=== PATIENT | male | born 1980 | race Caucasian/White ===

== ENCOUNTER 2016-08-23 01:49 | Emergency (ER) | payer MEDICAID ==
[2016-08-23 01:49] VITALS: BMI 27.3
[2016-08-23 02:03] VITALS: BP 134/81; PULSE 73; RESP 16; TEMP 97.5; O2SAT 100
--- NOTE | 2016-08-23 02:41 | ED PDOC ---
HPI: Abdomen Time Seen by Provider: 08/23/16 02:05 Chief Complaint (Nursing): Abdominal Pain Chief Complaint (Provider): abdominal pain History Per: Patient History/Exam Limitations: no limitations Onset/Duration Of Symptoms: Days (1 month) Current Symptoms Are (Timing): Still Present Severity: Mild Location Of Pain/Discomfort: RUQ, LUQ Quality Of Discomfort: Dull Exacerbating Factors: None, Other (sitting) Alleviating Factors: Other (laying down) Last Bowel Movement: Today Additional Complaint(s): Patient is a 36 year old male with hx of pancreatitis c/o upper abdominal pain for past 1 month/ Pain became worse this evening. He denies N/V/D, fever. CP, SOB. Patient states pain is different from what he experienced with pancreatitis. Pt has had EGD and colonoscopy in past with Dr Braswell. PMD [facility] ([facility]) Past Medical History Reviewed: Historical Data, Nursing Documentation, Vital Signs Vital Signs: Last Vital Signs Temp 97.5 F L 08/23/16 02:01 Pulse 73 08/23/16 02:01 Resp 16 08/23/16 02:01 BP 134/81 08/23/16 02:01 Pulse Ox 100 08/23/16 02:49 - Medical History PMH: No Chronic Diseases - Surgical History Surgical History: Endoscopy - Family History Family History: States: No Known Family Hx - Living Arrangements Living Arrangements: Alone - Social History Current smoker - smoking cessation education provided: No Ex-Smoker (has not smoked in the last 12 months): No Alcohol: None Drugs: Denies - Immunization History Hx Tetanus Toxoid Vaccination: No Hx Influenza Vaccination: No Hx Pneumococcal Vaccination: No - Home Medications Home Medications: Ambulatory Orders Medication Instructions Recorded Cyclobenzaprine [Cyclobenzaprine 10 mg PO Q8 PRN #9 tab 04/23/15 HCl] traMADol [Ultram] 50 mg PO TID PRN #12 tab 04/23/15 Dicyclomine [Bentyl] 20 mg PO Q12 PRN #20 tab 08/23/16 - Allergies Allergies/Adverse Reactions: Allergies Allergy/AdvReac Type Severity Reaction Status Date / Time No Known Allergies Allergy Verified 04/23/15 08:55 Review of Systems ROS Statement: Except As Marked, All Systems Reviewed And Found Negative Gastrointestinal: Positive for: Abdominal Pain Physical Exam - Reviewed Nursing Documentation Reviewed: Yes Vital Signs Reviewed: Yes - Physical Exam Head Exam: Positive for: ATRAUMATIC, NORMOCEPHALIC Skin: Positive for: Normal Color, Warm, Dry Eye Exam: Positive for: Normal appearance, EOMI, PERRL ENT: Positive for: Normal ENT Inspection Neck: Positive for: Normal, Painless ROM, Supple Cardiovascular/Chest: Positive for: Regular Rate, Rhythm Respiratory: Positive for: Normal Breath Sounds. Negative for: Crackles, Rales , Wheezing Gastrointestinal/Abdominal: Positive for: Bowel Sounds, Soft, Tenderness (mild RUQ tenderness is elicited) Extremity: Positive for: Normal ROM. Negative for: Tenderness, Pedal Edema Neurologic/Psych: Positive for: Alert, Oriented. Negative for: Motor/Sensory Deficits - Laboratory Results Result Diagrams: 08/23/16 02:30 08/23/16 02:30 - ECG O2 Sat by Pulse Oximetry: 100 Medical Decision Making Medical Decision Makin yo male with abdominal pain in setting of hx of pancreatitis Labs ordered; pt declines analgesia due jackie minor nature of symptoms Labs reviewed show no clinically significant abnormalities Pt stable upon dc home Dx Abdominal Pain FU PCP and GI MD in 2 days RX Bentyl Disposition - Clinical Impression Clinical Impression: Abdominal pain - Patient ED Disposition Is Patient to be Admitted: No Counseled Patient/Family Regarding: Studies Performed, Diagnosis, Need For Followup, Rx Given - Disposition Referrals: Chicho Guillermo MD [Staff Provider] - Marky Braswell MD, PhD [Staff Provider] - Disposition: Routine/Home Disposition Time: 04:00 Condition: STABLE Prescriptions: Dicyclomine [Bentyl] 20 mg PO Q12 PRN #20 tab PRN Reason: abdominal pain Instructions: Abdominal Pain (ED)
[2016-08-23 02:51] LABS: BASO # 0.1 K/uL (0.0-0.2); BASO % 0.8 % (0.0-2.0); EOS # 0.4 K/uL (0.0-0.7); LYMPH # 3.2 K/uL (1.0-4.3); LYMPH % 35.6 % (20.0-40.0); MEAN CELL VOLUME 95.3 fl (80.0-94.0); MEAN CORPUSCULAR HEMOGLOBIN 31.2 pg (27.0-31.0); MEAN CORPUSCULAR HGB CONC 32.7 g/dL (33.0-37.0); MEAN PLATELET VOLUME 8.8 fl (7.2-11.7); MONO # 0.8 K/uL (0.0-0.8); MONO % 8.6 % (0.0-10.0); NEUT # 4.6 K/uL (1.8-7.0); NRBC % 0.2 % (0.0-0.0); RED CELL DISTRIBUTION WIDTH 13.4 % (11.5-14.5); WHITE BLOOD COUNT 9.1 K/uL (4.8-10.8)
[2016-08-23 03:00] LABS: ALB/GLOB RATIO 1.2 (1.0-2.1); ALCOHOL SERUM < 10 mg/dl (0-10); ALKALINE PHOSPHATASE 83 U/L (38-126); ALT/SGPT 199 U/L (21-72); AST/SGOT 81 U/L (17-59); BILIRUBIN,TOTAL 0.3 mg/dl (0.2-1.3); BLOOD UREA NITROGEN 20 mg/dl (9-20); CALCIUM 9.2 mg/dL (8.4-10.2); CARBON DIOXIDE 25 mmol/L (22-30); CHLORIDE 103 mmol/L (98-107); GFR AFRICAN-AMERICAN > 60; GLUCOSE,RANDOM 121 mg/dL (75-110); LIPASE 109 U/L (23-300); POTASSIUM 3.8 MMOL/L (3.6-5.0); SODIUM 138 mmol/l (132-148); TOTAL PROTEIN 7.6 G/DL (6.3-8.2)
[2016-08-23 04:05] LABS: RBC URINE 2 /hpf (0-3); URINE BACTERIA RARE (<OCC); URINE BILIRUBIN NEGATIVE (NEGATIVE); URINE BLOOD NEGATIVE (NEGATIVE); URINE CALCIUM OXALATE CRYSTALS FEW /hpf (<OCC); URINE COLOR YELLOW (YELLOW); URINE GLUCOSE (UA) NEG (Normal); URINE KETONE TRACE mg/dL (NEGATIVE); URINE LEUKOCYTE ESTERASE NEG Leu/uL (Negative); URINE PROTEIN NEGATIVE (NEGATIVE); URINE UROBILINOGEN 0.2-1.0 mg/dL (0.2-1.0); WBC URINE < 1 /hpf (0-5)
== END 2016-08-23 04:45 | disposition home or self-care (01) ==
LOC: H.ER 01:49
DX: R10.9 Unspecified abdominal pain (principal)

== ENCOUNTER 2017-07-15 13:42 | Emergency (ER) | payer MEDICAID ==
[2017-07-15 13:43] VITALS: BMI 27.3
[2017-07-15 14:19] VITALS: BP 130/85; PULSE 60; RESP 18; TEMP 98.1; O2SAT 99
--- NOTE | 2017-07-15 16:17 | ED PDOC ---
HPI: CCC, URI, Sore Throat Time Seen by Provider: 07/15/17 13:59 Chief Complaint (Nursing): Chest Pain Chief Complaint (Provider): Cough x 1 month History Per: Patient History/Exam Limitations: no limitations Have you had recent travel within the past 21 days to any of the following countries: [place], [place], [place] or [place]?: No Onset/Duration Of Symptoms: Days Current Symptoms Are (Timing): Still Present Additional History Per: Patient Additional Complaint(s): 37yo male, presents to ER with complaints of chest pain for the past month. He also reports a productive cough with bloody phlegm. patient denies any shortness of breath or vomiting. No other complaints. Past Medical History Reviewed: Historical Data, Nursing Documentation, Vital Signs Vital Signs: Last Vital Signs Temp 98.1 F 07/15/17 14:15 Pulse 60 07/15/17 14:15 Resp 18 07/15/17 14:15 BP 130/85 07/15/17 14:15 Pulse Ox 99 07/28/17 20:35 - Medical History PMH: Gall Bladder Disease (GALLSTONES), Pancreatitis - Surgical History Surgical History: Endoscopy - Family History Family History: States: No Known Family Hx - Immunization History Hx Tetanus Toxoid Vaccination: No Hx Influenza Vaccination: No Hx Pneumococcal Vaccination: No - Home Medications Home Medications: Ambulatory Orders Medication Instructions Recorded Cyclobenzaprine [Cyclobenzaprine 10 mg PO Q8 PRN #9 tab 04/23/15 HCl] traMADol [Ultram] 50 mg PO TID PRN #12 tab 04/23/15 Dicyclomine [Bentyl] 20 mg PO Q12 PRN #20 tab 08/23/16 - Allergies Allergies/Adverse Reactions: Allergies Allergy/AdvReac Type Severity Reaction Status Date / Time No Known Allergies Allergy Verified 07/15/17 14:14 Review of Systems ROS Statement: Except As Marked, All Systems Reviewed And Found Negative Constitutional: Negative for: Fever, Weakness Cardiovascular: Positive for: Chest Pain. Negative for: Light Headedness Respiratory: Positive for: Cough. Negative for: Shortness of Breath Physical Exam - Reviewed Nursing Documentation Reviewed: Yes Vital Signs Reviewed: Yes - Physical Exam Appears: Positive for: Non-toxic, No Acute Distress Head Exam: Positive for: NORMAL INSPECTION Skin: Positive for: Normal Color Eye Exam: Positive for: Normal appearance Neck: Positive for: Supple Cardiovascular/Chest: Positive for: Regular Rate, Rhythm. Negative for: Murmur Respiratory: Positive for: Normal Breath Sounds. Negative for: Respiratory Distress Neurologic/Psych: Positive for: Alert, Oriented. Negative for: Motor/Sensory Deficits - ECG O2 Sat by Pulse Oximetry: 99 (RA) Pulse Ox Interpretation: Normal Medical Decision Making Medical Decision Making: Plan: -- CBC -- CMP -- CXR progress: -- Nurse went to room to draw blood, patient had left before treatment completed. Scribe Attestation: Documented by Carlene Trevino acting as a scribe for ALLISON Carcamo Provider Attestation: All medical record entries made by the Scribe were at my direction and personally dictated by me. I have reviewed the chart and agree that the record accurately reflects my personal performance of the history, physical exam, medical decision making, and the department course for this patient. I have also personally directed, reviewed, and agree with the discharge instructions and disposition. Disposition - Clinical Impression Clinical Impression: Chest pain - Disposition Disposition: Left W/O Treatment Disposition Time: 16:00 Condition: STABLE Forms: [employer] (Slovenian)
== END 2017-07-15 16:04 | disposition left against medical advice (07) ==
LOC: H.ER 13:42
DX: R07.9 Chest pain, unspecified (principal)

== ENCOUNTER 2018-09-26 06:15 | Emergency (ER) | payer BC, MEDICAID ==
[2018-09-26 06:16] VITALS: BMI 27.3
[2018-09-26] MEDS ORDERED: Sodium Chloride 0.9% 1,000 ML IV STA (06:53)
--- NOTE | 2018-09-26 06:57 | ED PDOC ---
HPI: Abdomen Time Seen by Provider: 09/26/18 06:47 Chief Complaint (Nursing): Male Genitourinary Chief Complaint (Provider): Male Genitourinary History Per: Patient History/Exam Limitations: no limitations Onset/Duration Of Symptoms: Persistent, Worse Since Additional Complaint(s): 38 year old male with medical history of pancreatitis, presents to the emergency department with a complaint of shortness of breath associated with right sided abdominal pain that radiates to the back. Patient was evaluated at [facility] on 09/24/18 for similar complaints and prescribed Cipro for a "kidney infection". He reports no improvement with worsening symptoms, thus, prompting ED visit. Otherwise, he denies fever, chills, vomiting, urinary complaints, or taking pain medication for relief. PCP: Dr. Chicho Guillermo Past Medical History Reviewed: Historical Data, Nursing Documentation, Vital Signs Vital Signs: Last Vital Signs Temp 98.1 F 09/26/18 06:28 Pulse 58 L 09/26/18 06:28 Resp 17 09/26/18 06:28 BP 131/93 H 09/26/18 06:28 Pulse Ox 98 09/26/18 06:28 - Medical History PMH: Gall Bladder Disease (GALLSTONES), Pancreatitis - Surgical History Surgical History: Endoscopy - Family History Family History: States: Unknown Family Hx - Social History Drugs: Denies - Immunization History Hx Tetanus Toxoid Vaccination: No Hx Influenza Vaccination: No Hx Pneumococcal Vaccination: No - Home Medications Home Medications: Ambulatory Orders Medication Instructions Recorded Cyclobenzaprine [Cyclobenzaprine 10 mg PO Q8 PRN #9 tab 04/23/15 HCl] traMADol [Ultram] 50 mg PO TID PRN #12 tab 04/23/15 Dicyclomine [Bentyl] 20 mg PO Q12 PRN #20 tab 08/23/16 Naproxen [Naprosyn] 500 mg PO Q12H #20 tab 09/26/18 - Allergies Allergies/Adverse Reactions: Allergies Allergy/AdvReac Type Severity Reaction Status Date / Time No Known Allergies Allergy Verified 07/15/17 14:14 Review of Systems ROS Statement: Except As Marked, All Systems Reviewed And Found Negative Constitutional: Negative for: Fever, Chills Respiratory: Positive for: Shortness of Breath Gastrointestinal: Positive for: Abdominal Pain (right sided). Negative for: Vomiting Genitourinary Male: Negative for: Dysuria, Incontinence, Hematuria Musculoskeletal: Positive for: Back Pain (right sided) Physical Exam - Reviewed Nursing Documentation Reviewed: Yes Vital Signs Reviewed: Yes - Physical Exam Appears: Positive for: Uncomfortable, In Acute Distress (restless) Head Exam: Positive for: ATRAUMATIC, NORMAL INSPECTION, NORMOCEPHALIC Skin: Positive for: Normal Color Eye Exam: Positive for: Conjunctival injection (bilaterally) ENT: Positive for: Normal ENT Inspection. Negative for: Pharyngeal Erythema Neck: Positive for: Normal Cardiovascular/Chest: Positive for: Regular Rate, Rhythm Respiratory: Positive for: Normal Breath Sounds. Negative for: Respiratory Distress Pulses-Radial (L): 2+ Pulses-Radial (R): 2+ Gastrointestinal/Abdominal: Positive for: Soft, Tenderness (RUQ) Back: Positive for: R CVA Tenderness. Negative for: Normal Inspection, L CVA Tenderness Extremity: Positive for: Normal ROM (upper/lower) Neurological/Psych: Positive for: Awake, Alert, Oriented. Negative for: Motor/Sensory Deficits - Laboratory Results Result Diagrams: 09/26/18 07:05 09/26/18 07:05 - ECG O2 Sat by Pulse Oximetry: 98 (RA) Pulse Ox Interpretation: Normal Medical Decision Making Medical Decision Making: Initial Impression: RUQ pain and right flank pain Differential diagnosis: kidney stones; UTI; gallbladder disease Initial Plan: * CT ABD/pelvis * Labs including UA * IV fluids * Toradol IVP * US gallbladder * Zofran IV Time: 0700 --Patient is signed out to Dr. Garcia, pending imaging and lab results. Scribe Attestation: Documented by Silvai Doyle, acting as a scribe for Liseth Isidro MD. Provider Scribe Attestation: All medical record entries made by the Scribe were at my direction and personally dictated by me. I have reviewed the chart and agree that the record accurately reflects my personal performance of the history, physical exam, medical decision making, and the department course for this patient. I have also personally directed, reviewed, and agree with the discharge instructions and disposition. Disposition - Clinical Impression Clinical Impression: Hepatic steatosis, Renal cyst, Flank pain - Patient ED Disposition Is Patient to be Admitted: Transfer of Care Counseled Patient/Family Regarding: Studies Performed, Diagnosis - Disposition Referrals: Chicho Guillermo MD [Primary Care Provider] - Rakesh Hebert MD [Staff Provider] - Marky Braswell MD, PhD [Staff Provider] - Disposition: Transfer of Care Disposition Time: 07:00 Condition: STABLE Prescriptions: Naproxen [Naprosyn] 500 mg PO Q12H #20 tab Instructions: Polycystic Kidney Disease, Nonalcoholic Steatohepatitis (CONTRERAS) Forms: [employer] (Congolese), [facility] ED School/Work Excuse Patient Signed Over To: Federico Garcia
--- NOTE | 2018-09-26 07:05 | ED PDOC ---
- Laboratory Results Result Diagrams: 09/26/18 07:05 09/26/18 07:05 - ECG O2 Sat by Pulse Oximetry: 98 (RA) - Progress Re-evaluation Time: 07:37 Condition: Re-examined (Continues to have significant pain despite Toradol) Medical Decision Making Medical Decision Making: Time: 0700 --Patient is endorsed to provider by Dr. Isidro, pending imaging and lab results. Scribe Attestation: Documented by Silvia Doyle, acting as a scribe for Federico Garcia MD. Provider Scribe Attestation: All medical record entries made by the Scribe were at my direction and personally dictated by me. I have reviewed the chart and agree that the record accurately reflects my personal performance of the history, physical exam, medical decision making, and the department course for this patient. I have also personally directed, reviewed, and agree with the discharge instructions and disposition. Disposition - Clinical Impression Clinical Impression: Hepatic steatosis, Renal cyst - POA Present On Arrival: None - Disposition Referrals: Chicho Guillermo MD [Primary Care Provider] - Rakesh Hebert MD [Staff Provider] - Marky Braswell MD, PhD [Staff Provider] - Disposition: Routine/Home Disposition Time: 11:41 Condition: FAIR Prescriptions: Naproxen [Naprosyn] 500 mg PO Q12H #20 tab Instructions: Nonalcoholic Steatohepatitis (CONTRERAS), Polycystic Kidney Disease Forms: [employer] (Lithuanian)
[2018-09-26 07:20] LABS: BASO # 0.1 K/uL (0.0-0.2); BASO % 0.4 % (0.0-2.0); EOS # 0.2 K/uL (0.0-0.7); EOS % 1.2 % (0.0-4.0); LYMPH # 1.6 K/uL (1.0-4.3); LYMPH % 12.5 % (20.0-40.0); MEAN CELL VOLUME 94.4 fl (80.0-94.0); MEAN CORPUSCULAR HEMOGLOBIN 31.4 pg (27.0-31.0); MEAN CORPUSCULAR HGB CONC 33.3 g/dL (33.0-37.0); MEAN PLATELET VOLUME 8.1 fl (7.2-11.7); MONO # 0.7 K/uL (0.0-0.8); MONO % 5.7 % (0.0-10.0); NEUT # 10.3 K/uL (1.8-7.0); NEUT % 80.2 % (50.0-75.0); RBC 4.12 Mil/uL (4.40-5.90); RED CELL DISTRIBUTION WIDTH 12.8 % (11.5-14.5); WHITE BLOOD COUNT 12.9 K/uL (4.8-10.8)
[2018-09-26 07:32] LABS: ALB/GLOB RATIO 1.3 (1.0-2.1); ALBUMIN 4.3 g/dL (3.5-5.0); ALT/SGPT 40 U/L (21-72); AST/SGOT 39 U/L (17-59); BLOOD UREA NITROGEN 16 mg/dl (9-20); CALCIUM 9.1 mg/dL (8.4-10.2); GFR NON-AFRICAN AMERICAN > 60; LIPASE 125 U/L (23-300)
[2018-09-26 08:02] LABS: URINE BACTERIA OCC (<OCC); URINE BILIRUBIN NEGATIVE (NEGATIVE); URINE BLOOD NEGATIVE (NEGATIVE); URINE CLARITY SLIGHTY-CLOUDY (Clear); URINE COLOR YELLOW (YELLOW); URINE GLUCOSE (UA) NEG (NEGATIVE); URINE HYALINE CAST 0-2 /hpf (0-2); URINE LEUKOCYTE ESTERASE NEG Leu/uL (Negative); URINE PROTEIN 30 mg/dL (NEGATIVE); URINE UROBILINOGEN 0.2-1.0 mg/dL (0.2-1.0)
[2018-09-26] MEDS ORDERED: Morphine 4 MG/ML VIAL ONE (09:12)
--- NOTE | 2018-09-26 09:42 | US ---
Date of service: 09/26/2018 HISTORY: RUQ pain COMPARISON: None. TECHNIQUE: Sonographic evaluation of the right upper quadrant of the abdomen. FINDINGS: LIVER: Measures 15.3 cm in length. Diffusely increased echogenicity of the liver parenchyma. Consistent with fatty infiltration. Geometric area of decreased echogenicity adjacent to the gallbladder fossa measuring 1.5 x 1.6 x 1.6 cm likely representing focal fatty sparing. No other mass. No biliary dilatation. Smooth contour. GALLBLADDER: Unremarkable. No gallstones. COMMON BILE DUCT: Measures 7 mm. No stones. Minimally dilated. Uncertain significance in the absence of intrahepatic biliary ductal dilatation. Correlate with clinical and laboratory evaluation. PANCREAS: Unremarkable as visualized. No mass. No ductal dilatation. RIGHT KIDNEY: Measures 11.4 cm in length. Normal echogenicity. No calculus, mass, or hydronephrosis. AORTA: No aneurysmal dilatation. IVC: Unremarkable. OTHER FINDINGS: None . IMPRESSION: Fatty infiltration of the liver. Probable small area of focal fatty sparing adjacent to the gallbladder fossa. Minimal dilatation of the common bile duct without associated intrahepatic biliary ductal dilatation. Uncertain significance.
--- NOTE | 2018-09-26 09:53 | CT ---
Date of service: 09/26/2018 PROCEDURE: CT Abdomen and Pelvis without intravenous contrast HISTORY: Right flank pain RUQ pain COMPARISON: 04/23/2015 TECHNIQUE: Without contrast.. Contrast dose: 0 Radiation dose: Total exam DLP = 454.28 mGy-cm. This CT exam was performed using one or more of the following dose reduction techniques: Automated exposure control, adjustment of the mA and/or kV according to patient size, and/or use of iterative reconstruction technique. FINDINGS: LOWER THORAX: Unremarkable. LIVER: Normal size and contour. Diffusely diminished attenuation consistent with fatty infiltration. This has improved somewhat when compared to the prior examination of 2014. Smooth contour. No mass. No biliary dilatation. GALLBLADDER AND BILE DUCTS: Unremarkable. PANCREAS: Unremarkable. No gross lesion or ductal dilatation. SPLEEN: Unremarkable. ADRENALS: Unremarkable. No mass. KIDNEYS AND URETERS: Multiple small rounded low-attenuation masses in the right kidney, likely hyperdense cysts. This represents interval change from prior examination and therefore further evaluation with ultrasound examination is suggested. No renal calculus. No hydronephrosis. VASCULATURE: Unremarkable. No aortic aneurysm. No aortic atherosclerotic calcification or mural plaque present. BOWEL: Mild sigmoid diverticulosis. No evidence of diverticulitis. No bowel obstruction. APPENDIX: Unremarkable. Normal appendix. PERITONEUM: Trace fluid in pelvis LYMPH NODES: Unremarkable. No enlarged lymph nodes. BLADDER: Unremarkable. REPRODUCTIVE: Normal prostate BONES: No acute fracture. OTHER FINDINGS: None. IMPRESSION: No acute abnormality. Multiple small rounded high attenuation lesions in the right kidney, likely hyperdense cysts. This represents interval change from prior examination. Correlation with renal ultrasound examination is advised. Fatty infiltration of the liver. Sigmoid diverticulosis without evidence of diverticulitis.
--- NOTE | 2018-09-26 11:41 | US ---
Date of service: 09/26/2018 PROCEDURE: Ultrasound of the Kidneys HISTORY: Cyst on CT COMPARISON: None available. TECHNIQUE: Sonogram of the kidneys. FINDINGS: RIGHT KIDNEY: Measures: 11.8 x 6.8 x 4.7 cm. No obstructing calculus, hydronephrosis, or renal cyst identified. LEFT KIDNEY: Measures: 11.0 x 6.3 x 5.7 cm cm. No obstructing calculus, hydronephrosis, or renal cyst identified. OTHER FINDINGS: None. IMPRESSION: Multiple small renal masses within the right kidney demonstrated on CT performed 09/26/18 are not demonstrated on the current study. Please note that shadowing limits evaluation. Correlate clinically. Follow-up cross-sectional imaging may be considered.
[2018-09-26 11:58] VITALS: BP 126/74; PULSE 64; RESP 16; TEMP 98.3
[2018-09-26 12:49] VITALS: O2SAT 98
== END 2018-09-26 11:50 | disposition home or self-care (01) ==
LOC: H.ER 06:15
DX: K76.0 Fatty (change of) liver, not elsewhere classified (principal); N28.1 Cyst of kidney, acquired; R10.9 Unspecified abdominal pain; K57.30 Diverticulosis of large intestine without perforation or abscess without bleeding
CPT/HCPCS: 74176; 76705; 76770; 80053; 81003; 83690; 85025; 96361; 96374; 96375; 99284; J1885; J2270; J2405; J7030